=== PATIENT | female | born 1955 | race Hispanic/Latino ===

== ENCOUNTER 2016-09-26 08:09 | Outpatient (CLI) | payer MEDICARE ==
--- NOTE | 2016-09-26 13:32 | PET Report ---
PET/CT:09/26/16 08:09:00 CLINICAL: Renal cancer restaging. RADIOPHARMACEUTICAL: 15.11mCi F18-FDG. COMPARISON: 02/02/15 PET/CT TECHNIQUE- Following intravenous injection of F-18 FDG and an approximately 60 minute uptake period, CT and PET images from the mid skull to the upper thighs were acquired with the patient in the fasted state. No contrast was administered. The CT protocol used for this PET CT study is designed for attenuation correction and anatomic localization of PET abnormalities. This centrifugal chiller technician CT is not desired to produce and cannot replace, [id number] diagnostic CT scans with specific imaging protocols for different body parts and indications. Plasma glucose at the time of this test: 152g/dl. The standardized uptake values (SUV) are normalized to patient body weight and indicate the highest activity concentration (SUV max) in a given disease site. FINDINGS: Brain--Physiologic FDG uptake in the visualized regions of the brain. Neck--Physiologic FDG uptake . Chest--Physiologic FDG uptake in mediastinal blood pool and myocardium. Lungs--No abnormal uptake. No pulmonary nodule or mass. Pleura/pericardium--No abnormal uptake. Thoracic nodes--No abnormal uptake. A previously described abnormal right paratracheal lymph node is no longer identified. Hepatobiliary--No abnormal uptake. Liver background SUV mean, as a reference for comparing FDG studies, is 5.0 compared to 3.8 on the last exam. No liver mass. Spleen--No abnormal uptake. Pancreas--No abnormal uptake. Adrenal Glands--The left adrenal gland is smaller in size and the more superior mass has resolved. Pathologic FDG uptake in the left adrenal gland has resolved. A non-FDG avid inferior left adrenal mass measures 3.9 x 1.5 centimeters compared to 4.2 x 2.1 cm on the last exam. Kidneys/Ureters/Bladder--No abnormal uptake. Status post right nephrectomy. The Abdominopelvic Nodes--No abnormal uptake. Bowel/Peritoneum/Mesentery--No abnormal uptake. Pelvic organs--No abnormal uptake. 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 Stable FDG uptake in the sacral lesion with SUV 3.4 compared to 3.2. IMPRESSION-1. Positive response to therapy with decreased FDG uptake and size of left adrenal metastasis. 2. Stable sacral metastasis. 3. No new metastatic lesions.
== END 2016-09-26 08:10 | disposition home or self-care (01) ==
LOC: PET 08:09
PROVIDERS: ATTEND Internal Medicine Hematology & Oncology
DX: C79.51 Secondary malignant neoplasm of bone (principal); E27.8 Other specified disorders of adrenal gland; Z90.5 Acquired absence of kidney; Z79.899 Other long term (current) drug therapy
CPT/HCPCS: 78815; 82962; A9552

== ENCOUNTER 2016-11-19 13:36 | Outpatient (CLI) | payer MEDICARE ==
--- NOTE | 2016-11-19 18:09 | Magnetic Resonance Report ---
MR scan of the cranium was performed with and without contrast. Pulse sequences included: 1. T1 weighted sagittal and axial images without contrast and T1 axial images with contrast and reformatted coronal and sagittal images with contrast 2. T2 weighted axial and coronal images 3. FLAIR axial images 4. Diffusion-weighted axial images 5. Apparent diffusion coefficient images Views of the posterior fossa showed a normal craniocervical junction. Cerebellar pontine angles were normal with normal seventh-eighth nerve complexes. Brainstem and cerebellum were normal. The ventricular system showed mild dilatation but nor distortion. Images of the hemispheres showed a moderate amount of white matter changes in the periventricular white matter consistent with araiosis. There was enlargement of the Sylvian fissures and some atrophy noted over the hippocampi. Sinuses showed a right maxillary sinus mucus retention cyst. Pituitary, flow voids in the [place], orbits, and basal ganglia were normal. There are no abnormal areas of enhancement with contrast. Impression: Abnormal MR scan of the cranium with and without contrast 1. mild ventricular dilation 2. enlarged Sylvian fissures 3. mild hippocampal atrophy 4. white matter araiosis 5. mucus retention cyst right maxillary sinus
== END 2016-11-19 13:37 | disposition home or self-care (01) ==
LOC: SPVIMAG 13:36
PROVIDERS: ATTEND Specialist
DX: R41.1 Anterograde amnesia (principal); R90.82 White matter disease, unspecified; I51.7 Cardiomegaly; J34.1 Cyst and mucocele of nose and nasal sinus; G93.89 Other specified disorders of brain
CPT/HCPCS: 70553; A9577

== ENCOUNTER 2017-05-01 08:56 | Outpatient (CLI) | payer MEDICARE | END 2017-05-01 08:57 | disposition home or self-care (01) | LOC: PET 08:56 | PROVIDERS: ATTEND Internal Medicine Hematology & Oncology | DX: C64.1 Malignant neoplasm of right kidney, except renal pelvis (principal); Z79.899 Other long term (current) drug therapy | CPT/HCPCS: 82962 ==

== ENCOUNTER 2017-06-05 06:59 | Outpatient (CLI) | payer MEDICARE | END 2017-06-05 07:00 | disposition home or self-care (01) | LOC: PET 06:59 | PROVIDERS: ATTEND Internal Medicine Hematology & Oncology | DX: C64.1 Malignant neoplasm of right kidney, except renal pelvis (principal); Z79.899 Other long term (current) drug therapy | CPT/HCPCS: 82962 ==

== ENCOUNTER 2017-06-12 12:58 | Outpatient (CLI) | payer MEDICARE ==
--- NOTE | 2017-06-16 09:18 | PET Report ---
PET SB TO MT SUBSEQUENT: HISTORY: Kidney cancer. TECHNIQUE: 14.5 millicuries F-18 FDG was administered intravenously. Noncontrast CT images and PET images were obtained from the skull base to the proximal thighs. Fused images were reviewed on a workstation. The patient's blood glucose level measured 149. COMPARISON: 09/26/16. FINDINGS: BRAIN: physiologic FDG uptake in the imaged brain. NECK: physiologic FDG uptake. MEDIASTINUM: physiologic FDG uptake. LUNGS: physiologic FDG uptake. PLEURA/PERICARDIUM: physiologic FDG uptake. THORACIC LYMPH NODES: physiologic FDG uptake. HEPATOBILIARY: physiologic FDG uptake. Mean liver SUV measures 5.6 as opposed to 4.7 on the previous exam. PANCREAS: physiologic FDG uptake. SPLEEN: physiologic FDG uptake. ADRENAL GLANDS: The right renal gland remains normal. There are 2 left adrenal masses which have increased in size since the previous exam. Soft tissue mass in the body of the left adrenal gland has increased from 1 cm to 3 cm in diameter with max SUV measuring 5.9. The previously described mass in the lateral limb of the left adrenal gland has increased from 3.9 x 1.5 to 4.0 x 2.7 cm. Max SUV now measures 10.4. KIDNEYS/RENAL COLLECTING SYSTEMS: Right nephrectomy changes are again noted. The left kidney remains unremarkable. The ureters and bladder are within normal limits. BOWEL/MESENTERY: There are multiple new areas of groundglass density within the mesentery of both lower quadrants. The largest area is just below the aortic bifurcation measuring 4.9 x 4.5 cm in axial plane and max SUV measuring 6.8. There are several additional ill-defined densities in the pelvic mesentery with max SUV ranging from 4.5 - 7.3. These presumably represent mesenteric recurrence. There is no evidence for bowel obstruction or focal bowel thickening. Appendectomy changes are suspected. PELVIC VISCERA: physiologic FDG uptake. ABDOMINAL/PELVIC LYMPH NODES: physiologic FDG uptake. MUSCULOSKELETAL: Stable mixed lytic and sclerotic metastasis of the sacrum and right sacral ala with stable FDG uptake measuring 2.9. IMPRESSION: Mild progression of disease is demonstrated since 09/26/16. Left adrenal metastases have increased in size and metabolic activity as described. There are several new but ill-defined areas of groundglass density scattered throughout the lower abdominal/pelvic mesentery as outlined above. These presumably represent mesenteric metastases. Stable bony lesions in the pelvis.
== END 2017-06-12 12:59 | disposition home or self-care (01) ==
LOC: PET 12:58
PROVIDERS: ATTEND Internal Medicine Hematology & Oncology
DX: C79.51 Secondary malignant neoplasm of bone (principal); C79.72 Secondary malignant neoplasm of left adrenal gland; C64.1 Malignant neoplasm of right kidney, except renal pelvis; E27.9 Disorder of adrenal gland, unspecified; Z90.5 Acquired absence of kidney; Z79.899 Other long term (current) drug therapy
CPT/HCPCS: 78815; 82962; A9552

== ENCOUNTER 2017-10-16 09:12 | Outpatient (CLI) | payer MEDICARE ==
--- NOTE | 2017-10-20 10:07 | PET Report ---
PET SB TO MT SUBSEQUENT: HISTORY: Restaging of right renal cancer, evaluate response to therapy. TECHNIQUE: 14.3 millicuries F-18 FDG was administered intravenously. Noncontrast CT images and PET images were obtained from the skull base to the proximal thighs. Fused images were reviewed on a workstation. The patient's blood glucose level measured 128. COMPARISON: 06/12/17. FINDINGS: BRAIN: physiologic FDG uptake in the imaged brain. NECK: A permeative bone lesion is identified in the body of the right mandible measuring approximately 4.5 x 1.1 cm in axial plane. Max SUV measures 4.9 which has decreased from 8.4 on the previous study. MEDIASTINUM: physiologic FDG uptake. LUNGS: physiologic FDG uptake. PLEURA/PERICARDIUM: physiologic FDG uptake. THORACIC LYMPH NODES: physiologic FDG uptake. HEPATOBILIARY: physiologic FDG uptake. Mean liver SUV measures 5.7 as opposed to 5.6 on the previous exam. PANCREAS: physiologic FDG uptake. SPLEEN: physiologic FDG uptake. ADRENAL GLANDS: The right adrenal gland remains normal. Left adrenal masses have decreased in size and metabolic activity since the previous exam. A mass in the body of the left adrenal gland has decreased from 3.7 x 2.7 cm and now measures 2.2 x 2.0 cm. Max SUV has decreased from 5.9 to 3.6. The mass in the lateral limb of the left adrenal gland has decreased from 3.1 x 3.1 cm and now measures 2.0 x 2.0 cm. Max SUV has decreased from 10.4 to 5.6. KIDNEYS/RENAL COLLECTING SYSTEMS: physiologic FDG uptake in the left kidney. Stable right nephrectomy changes. BOWEL/MESENTERY: physiologic FDG uptake. The previously described groundglass densities in the mesentery have essentially resolved. PELVIC VISCERA: physiologic FDG uptake. Hysterectomy. ABDOMINAL/PELVIC LYMPH NODES: physiologic FDG uptake. MUSCULOSKELETAL: Mixed sclerotic lytic lesion in the right sacrum is stable in size measuring 6.6 x 5.3 cm in axial plane. Max SUV 2 stable 4.2. IMPRESSION: A positive response to therapy is demonstrated since 06/12/17 as outlined above. A permeative bone lesion in the right mandible has decreased in metabolic activity. (Please note this was not clearly mentioned on the previous report.) Left adrenal masses have decreased in size and metabolic activity. Ill-defined mesenteric densities have resolved. Mixed density lesion in the right sacrum is stable. No new areas of disease are appreciated.
== END 2017-10-16 09:13 | disposition home or self-care (01) ==
LOC: PET 09:12
PROVIDERS: ATTEND Internal Medicine Hematology & Oncology
DX: C64.1 Malignant neoplasm of right kidney, except renal pelvis (principal); E27.8 Other specified disorders of adrenal gland; M89.9 Disorder of bone, unspecified; E53.8 Deficiency of other specified B group vitamins; R21 Rash and other nonspecific skin eruption; Z79.899 Other long term (current) drug therapy; Z90.5 Acquired absence of kidney; Z90.710 Acquired absence of both cervix and uterus
CPT/HCPCS: 78815; 82962; A9552

== ENCOUNTER 2018-01-08 09:13 | Outpatient (CLI) | payer MEDICARE ==
--- NOTE | 2018-01-09 09:16 | PET Report ---
PET/CT:01/08/18 09:13:00 CLINICAL: Restaging right renal cell carcinoma. RADIOPHARMACEUTICAL: 14.5mCi F18-FDG. COMPARISON: 10/16/17 PET/CT TECHNIQUE- Following intravenous injection of F-18 FDG and an approximately 60 minute uptake period, CT and PET images from the mid skull to the upper thighs were acquired with the patient in the fasted state. No contrast was administered. The CT protocol used for this PET CT study is designed for attenuation correction and anatomic localization of PET abnormalities. This finishing pan operator CT is not desired to produce and cannot replace, [id number] diagnostic CT scans with specific imaging protocols for different body parts and indications. Plasma glucose at the time of this test: 151g/dl. The standardized uptake values (SUV) are normalized to patient body weight and indicate the highest activity concentration (SUV max) in a given disease site. FINDINGS: Brain--Physiologic FDG uptake in the visualized regions of the brain. Neck--Physiologic FDG uptake in mucosal structures. No mass or lymphadenopathy. A stable permeative lesion of the right mandible with FDG uptake an SUV 4.4 compared to 4.9. Chest--Physiologic FDG uptake in mediastinal blood pool and myocardium. Lungs--No abnormal uptake. No pulmonary nodule or mass. Pleura/pericardium--No abnormal uptake. Thoracic nodes--No abnormal uptake. Hepatobiliary--No abnormal uptake. Liver background SUV mean, as a reference for comparing FDG studies, is 4.0 compared to 6.1 on the last exam. No liver mass. Spleen--No abnormal uptake. Pancreas--No abnormal uptake. Adrenal Glands--Mass of the left adrenal body measures 2.3 x 2.3 cm with SUV 2.4 compared to 2.2 x 2.0 cm and SUV 3.6 on the last exam. The lateral left adrenal mass measures 2.7 x 2.2 cm with SUV 2.7 compared to 2.0 x 2.0 cm and SUV 5.6. The right adrenal gland is normal. Kidneys/Ureters/Bladder--No abnormal uptake. Status post right nephrectomy. Abdominopelvic Nodes--No abnormal uptake. Bowel/Peritoneum/Mesentery--No abnormal uptake. Pelvic organs--No abnormal uptake. Bones/Soft Tissues--The FDG avid permeative right mandibular lesion is unchanged on the CT but the SUV has decreased to 4.4 from 4.9. The mixed lytic and blastic lesion of the sacrum is stable radiographically with FDG uptake equal to background. IMPRESSION-Continued improvement with decreased FDG uptake in left adrenal masses and skeletal lesions. No new disease.
== END 2018-01-08 09:14 | disposition home or self-care (01) ==
LOC: PET 09:13
PROVIDERS: ATTEND Internal Medicine Hematology & Oncology
DX: C64.1 Malignant neoplasm of right kidney, except renal pelvis (principal); E53.8 Deficiency of other specified B group vitamins; R21 Rash and other nonspecific skin eruption; I10 Essential (primary) hypertension; G47.30 Sleep apnea, unspecified; E03.9 Hypothyroidism, unspecified; F32.9 Major depressive disorder, single episode, unspecified; K21.9 Gastro-esophageal reflux disease without esophagitis; E78.00 Pure hypercholesterolemia, unspecified
CPT/HCPCS: 78815; 82962; A9552

== ENCOUNTER 2018-10-15 07:17 | Outpatient (CLI) | payer MEDICARE ==
--- NOTE | 2018-10-19 09:00 | PET Report ---
PET SB TO MT SUBSEQUENT: HISTORY: Restaging of renal cancer. TECHNIQUE: 14.1 millicuries F-18 FDG was administered intravenously. Noncontrast CT images and PET images were obtained from the skull base to the proximal thighs. Fused images were reviewed on a workstation. The patient's blood glucose level measured 111. COMPARISON: 07/02/18. FINDINGS: BRAIN: physiologic FDG uptake in the imaged brain. NECK: physiologic FDG uptake. MEDIASTINUM: physiologic FDG uptake. LUNGS: physiologic FDG uptake. PLEURA/PERICARDIUM: physiologic FDG uptake. THORACIC LYMPH NODES: physiologic FDG uptake. HEPATOBILIARY: physiologic FDG uptake. Mean liver SUV measures 4.4. PANCREAS: physiologic FDG uptake. SPLEEN: physiologic FDG uptake. ADRENAL GLANDS: At least 2 left adrenal masses are again identified. A superior left adrenal mass measures 2.9 x 3.9 cm and demonstrates a max SUV of 5.4 as opposed to 5.6 on the previous exam. A lateral left adrenal mass measures 3.9 x 2.7 cm and demonstrates a max SUV of 9.7 as opposed to 10.9 on the previous exam. The right adrenal gland remains normal. KIDNEYS/RENAL COLLECTING SYSTEMS: physiologic FDG uptake. Stable right nephrectomy changes. No recurrent mass or perinephric adenopathy has developed. BOWEL/MESENTERY: physiologic FDG uptake. PELVIC VISCERA: physiologic FDG uptake. ABDOMINAL/PELVIC LYMPH NODES: physiologic FDG uptake. MUSCULOSKELETAL: The previously described lytic/sclerotic right sacral lesion appears stable in size and demonstrates a max SUV of 2.4 as opposed to 2.5 on the previous exam. No new bony lesions are identified. IMPRESSION: A mild positive response to therapy is demonstrated since the previous examination. Left adrenal masses demonstrate slightly decreased metabolic activity as described above. The right sacral lesion is unchanged and remains hypometabolic. No new areas of disease are identified.
== END 2018-10-15 07:18 | disposition home or self-care (01) ==
LOC: PET 07:17
PROVIDERS: ATTEND Internal Medicine Hematology & Oncology
DX: C64.1 Malignant neoplasm of right kidney, except renal pelvis (principal); I10 Essential (primary) hypertension; K21.9 Gastro-esophageal reflux disease without esophagitis; E03.9 Hypothyroidism, unspecified; Z90.710 Acquired absence of both cervix and uterus; R73.09 Other abnormal glucose
CPT/HCPCS: 78815; 82962; A9552

== ENCOUNTER 2019-03-04 10:29 | Outpatient (CLI) | payer MEDICARE ==
--- NOTE | 2019-03-04 15:49 | PET Report ---
PET/CT HISTORY: C64.1, E53.8, R21. Restaging renal carcinoma TECHNIQUE: The patient's fasting blood glucose was 129. The patient weighed 91 kg. The patient was injected with 13.3 mCi of FDG in the right hand at 11:27 AM and imaging was started within the follo wing hour. The patient was imaged from the skull base to the thighs. COMPARISON: PET scan from 10/15/2018 FINDINGS: FDG findings: There are at least 2 left adrenal masses. Measurements to include SUV values were requ ired on both the most recent exam and the current exam with values as below: 1. Cranial/medial left adrenal mass measures 4.2 x 2.6 cm with max SUV of 16.8, previously measuring 3.6 x 2.4 cm (in the same planes) with max SUV of 5.4 2. Inferior/lateral left adrenal mass measures 3.9 x 3.0 cm with max SUV of 15.3, previously 3.5 x 2. 6 cm with max SUV of 9.7 Partially sclerotic bone lesion in the right sacral ala is stable in appearance. No other abnormal up take identified. Non-FDG findings: No significant incidental findings in the chest, abdomen, or pelvis. IMPRESSION: Worsened exam as above. Signer Name: Valente Estrada MD Signed: 03/04/2019 3:45 PM Workstation Name: [id number]
== END 2019-03-04 10:30 | disposition home or self-care (01) ==
LOC: PET 10:29
PROVIDERS: ATTEND Internal Medicine Hematology & Oncology
DX: C64.1 Malignant neoplasm of right kidney, except renal pelvis (principal); R21 Rash and other nonspecific skin eruption; E53.8 Deficiency of other specified B group vitamins; M53.3 Sacrococcygeal disorders, not elsewhere classified; E03.9 Hypothyroidism, unspecified; I10 Essential (primary) hypertension; R73.09 Other abnormal glucose; Z90.710 Acquired absence of both cervix and uterus
CPT/HCPCS: 78815; 82962; A9552

== ENCOUNTER 2019-03-26 08:36 | Day surgery (SDC) | payer MEDICARE ==
[2019-03-26 09:46] LABS: Mean Corpuscular HGB Conc 34 % (30-34); Mean Corpuscular Volume 108 fl (79-97); Platelet Count 309 K/mm3 (140-440); Red Blood Count 3.81 M/mm3 (3.65-5.03); Red Cell Distribution Width 14.5 % (13.2-15.2)
[2019-03-26] MEDS ORDERED: DILAUDID IV ONE ×2 (09:49→13:15)
[2019-03-26] MEDS ORDERED: ZOFRAN IV ONE (09:51)
[2019-03-26 09:56] LABS: BUN/Creatinine Ratio 10; Blood Urea Nitrogen 7 mg/dL (7-17); Calcium 8.3 mg/dL (8.4-10.2); Hemolysis Index 3
[2019-03-26] MEDS ORDERED: NACL 0.9% 500 ML 500 ML IV SCH (10:00)
[2019-03-26 11:04] LABS: INR 0.85 (0.87-1.13)
[2019-03-26 11:05] LABS: Partial Thromboplastin Time 27.1 Sec. (24.2-36.6)
[2019-03-26] MEDS ORDERED: ZOFRAN ONE (12:09)
[2019-03-26] MEDS ORDERED: DILAUDID ONE ×2 (12:10→13:17)
--- NOTE | 2019-03-26 14:48 | Cat Scan Report ---
CT-GUIDED LEFT ADRENAL BIOPSY INDICATION : malignant neoplasm of right kidney. Left adrenal mass. COMPARISON: PET/CT dated 03/04/2019 PROCEDURE: The risks (including but not limited to bleeding and infection) and benefits were explain ed to the patient and informed consent was obtained. All CT scans at this location are performed usi ng CT dose reduction for ALARA by means of automated exposure control. A time out procedure was performed. The procedure site was prepped and draped in the usual sterile f ashion and lidocaine was used for local anesthesia. Anxiolysis was accomplished with IV Dilaudid and Zofran. Using CT guidance, a 19-gauge introducer needle was advanced to the leading edge of a 4.4 x 3.3 cm ma ss arising from the lateral limb of the left adrenal gland. A single 20-gauge core biopsy measuring 2 .2 cm was obtained. Pathology was present to evaluate the sample which was deemed adequate. Follow-up scan demonstrates no evidence for hemorrhage. The patient tolerated the procedure well with no complications. IMPRESSION: Successful CT-guided biopsy of a left adrenal mass. Signer Name: Lowell Blevins Jr, MD Signed: 03/26/2019 2:43 PM Workstation Name: [id number]
[2019-03-26 15:10] VITALS: BP 147/62
== END 2019-03-26 08:37 | disposition home or self-care (01) ==
LOC: CATHLABREC 08:36
PROVIDERS: ATTEND Internal Medicine Hematology & Oncology
DX: C64.1 Malignant neoplasm of right kidney, except renal pelvis (principal); E53.8 Deficiency of other specified B group vitamins; R21 Rash and other nonspecific skin eruption; I12.9 Hypertensive chronic kidney disease with stage 1 through stage 4 chronic kidney disease, or unspecified chronic kidney disease; N18.4 Chronic kidney disease, stage 4 (severe); E03.9 Hypothyroidism, unspecified; F32.9 Major depressive disorder, single episode, unspecified; F17.210 Nicotine dependence, cigarettes, uncomplicated; Z88.5 Allergy status to narcotic agent; Z79.899 Other long term (current) drug therapy; Z90.710 Acquired absence of both cervix and uterus; Z94.0 Kidney transplant status; Z72.89 Other problems related to lifestyle; Z98.890 Other specified postprocedural states
CPT/HCPCS: 36415; 50200; 77012; 80048; 85027; 85610; 85730; 88305; 88333; 88341; 88342; 96374; 96375; J1170; J2405; 88173; J7040

== ENCOUNTER 2019-05-10 16:00 | Outpatient (CLI) | payer MEDICARE ==
--- NOTE | 2019-05-10 17:14 | XRay Report ---
CHEST 2 VIEWS INDICATION / CLINICAL INFORMATION: COUGH. COMPARISON: 02/04/2012 FINDINGS: SUPPORT DEVICES: Port-A-Cath is now seen on the right. HEART / MEDIASTINUM: No significant abnormality. LUNGS / PLEURA: No significant pulmonary or pleural abnormality. No pneumothorax. ADDITIONAL FINDINGS: No significant additional findings. IMPRESSION: 1. No acute findings. Signer Name: Torito Quinones MD Signed: 05/10/2019 5:10 PM Workstation Name: [id number]
== END 2019-05-10 16:01 | disposition home or self-care (01) ==
LOC: SPVWC 16:00
PROVIDERS: ATTEND Internal Medicine Hematology & Oncology
DX: C64.1 Malignant neoplasm of right kidney, except renal pelvis (principal); E53.8 Deficiency of other specified B group vitamins; R21 Rash and other nonspecific skin eruption; G30.9 Alzheimer's disease, unspecified; G62.9 Polyneuropathy, unspecified; F32.9 Major depressive disorder, single episode, unspecified; E03.9 Hypothyroidism, unspecified; R05 Cough; I10 Essential (primary) hypertension; K21.9 Gastro-esophageal reflux disease without esophagitis; Z90.710 Acquired absence of both cervix and uterus; Z90.5 Acquired absence of kidney
CPT/HCPCS: 71046

== ENCOUNTER 2020-10-12 06:46 | Outpatient (CLI) | payer MEDICARE ==
--- NOTE | 2020-10-12 13:51 | PET Report ---
PET-CT SCAN INDICATION / CLINICAL INFORMATION: C64.1. Renal carcinoma STAGING: Re-staging TECHNIQUE: Tumor imaging, positron emission tomography (PET) with concurrently acquired computed tomography (CT) for attenuation correction and anatomical localization; Skull Base to Mid Thigh - DOSE: 15.662 mCi F-18 FDG was administered IV per protocol - GLUCOSE: Patient's blood glucose at that time was (mg/dL): 180 - UPTAKE TIME: PET scan performed approximately 60 minutes after radiotracer administration. - CT SCAN DESCRIPTION: No oral or IV contrast. All CT scans at this location are performed using CT d ose reduction for ALARA by means of automated exposure control. COMPARISON: PET/CT performed on 03/30/2020. FINDINGS: HEAD / NECK: No abnormal radiotracer uptake in the neck. No new significant CT abnormality. CHEST: No abnormal radiotracer uptake in the chest. No new significant CT abnormality. ABDOMEN / PELVIS: Previously described left adrenal masses have improved. The more medial mass locate d on image 121 measures 4.8 x 2.8 cm, previously 6.2 x 3.2 cm without suspicious uptake. The more lat eral mass measures 4.7 x 3.4 cm on image 132, previously 5.4 x 3.4 cm, with a maximum SUV of 3.3, pre viously 14.5. No other sites of suspiciously increased metabolic activity. No new significant CT abno rmality. LOWER EXTREMITIES: No abnormal radiotracer uptake in the visualized lower extremities. No new signifi cant CT abnormality. SKELETAL STRUCTURES: No hypermetabolic bone lesions. Unchanged nonhypermetabolic sacral lesion with s table associated heterotopic ossification. No new significant CT abnormality. ADDITIONAL FINDINGS: No additional significant findings. IMPRESSION: 1. Interval disease response with improvement of the left adrenal masses as above with minimal residu al uptake in the more lateral mass. 2. No new sites of FDG avid neoplastic disease. Signer Name: Lan Vega MD Signed: 10/12/2020 1:47 PM Workstation Name: [id number]
== END 2020-10-12 06:47 | disposition home or self-care (01) ==
LOC: PET 06:46
PROVIDERS: ATTEND Internal Medicine Hematology & Oncology
DX: C64.1 Malignant neoplasm of right kidney, except renal pelvis (principal); E53.8 Deficiency of other specified B group vitamins; F32.9 Major depressive disorder, single episode, unspecified; E03.9 Hypothyroidism, unspecified; G30.9 Alzheimer's disease, unspecified; R21 Rash and other nonspecific skin eruption; G62.9 Polyneuropathy, unspecified
CPT/HCPCS: 78815; 82962; A9552